=== PATIENT | female | born 1940 | race Caucasian/White ===

== ENCOUNTER 2016-12-01 11:11 | Emergency (ER) | payer MEDICARE ==
[~2016-12-01] VITALS: Ht 157.5 cm; Wt 58.5 kg
[~2016-12-01 11:11] MED LIST: RALO60TA12 PO
[2016-12-01 11:14] VITALS: Ht 157.5 cm; Wt 58.5 kg
[2016-12-01] MEDS ORDERED: SOD CHLORIDE 0.9% 1,000 ML IV STA (11:36)
[2016-12-01 11:53] LABS: BASOPHILS % 0.6 % (0.0-2.0); EOSINOPHILS # 0.2 10^3/ul (0.0-0.5); EOSINOPHILS % 2.7 % (0.0-7.0); HEMATOCRIT 44.8 % (37.0-47.0); HEMOGLOBIN 14.9 g/dl (12.0-16.0); LYMPHOCYTES # 1.4 10^3/ul (0.8-2.9); LYMPHOCYTES % 18.5 % (15.0-51.0); MEAN CORPUSCULAR HEMOGLOBIN 31.7 pg (29.0-33.0); MEAN CORPUSCULAR HGB CONC 33.3 g/dl (32.0-37.0); MEAN CORPUSCULAR VOLUME 95.2 fl (82.0-101.0); MEAN PLATELET VOLUME 7.6 fl (7.4-10.4); MONOCYTE # 0.4 10^3/ul (0.3-0.9); NEUTROPHIL # 5.3 10^3/ul (1.6-7.5); NEUTROPHILS % 72.2 % (39.0-77.0); PLATELET COUNT 224 10^3/UL (140-440); RED BLOOD COUNT 4.71 10^6/ul (4.20-5.40); RED CELL DISTRIBUTION WIDTH 13.6 % (11.5-14.5); UNCORRECTED WBC 7.4 10^3/ul (4.8-10.8); WHITE BLOOD COUNT 7.4 10^3/ul (4.8-10.8)
[2016-12-01 11:56] LABS: CONDITION 1
[2016-12-01 12:06] LABS: CHLORIDE 100 mmol/L (97-110); POTASSIUM 3.9 mmol/L (3.5-5.1); SODIUM 139 mmol/L (135-144)
[2016-12-01 12:07] LABS: INR 0.97; PROTIME 12.9 Sec (12.2-14.2)
[2016-12-01 12:08] LABS: PARTIAL THROMBOPLASTIN TIME 33.7 Sec (25.0-35.0)
[2016-12-01 12:08] LABS: ADD UMIC YES; URINE BILIRUBIN (Dip) NEGATIVE (NEGATIVE); URINE BLOOD (Dip) TRACE (NEGATIVE); URINE COLOR LT. YELLOW (YELLOW); URINE GLUCOSE (Dip) NEGATIVE (NEGATIVE); URINE KETONES (Dip) 15 (NEGATIVE); URINE LEUKOCYTE ESTERASE (Dip) NEGATIVE (NEGATIVE); URINE NITRITE (Dip) NEGATIVE (NEGATIVE); URINE TOTAL PROTEIN (Dip) NEGATIVE (NEGATIVE); URINE UROBILINOGEN (Dip) 0.2 E.U./dL (0.1-1.0)
[2016-12-01 12:09] LABS: ANION GAP 18 (8-16); BLOOD UREA NITROGEN 17 mg/dl (7-20); CALCIUM 9.3 mg/dl (8.4-10.2); CARBON DIOXIDE 25 mmol/L (21-31); GLUCOSE 98 mg/dl (70-220)
--- NOTE | 2016-12-01 12:15 | RADRPT ---
PROCEDURE: CT Brain without contrast. CLINICAL INDICATION: Syncope TECHNIQUE: Routine CT scan of the brain was performed on a high resolution multi detector scanner without intravenous contrast. One or more of the following dose reduction techniques were used: Auto mated exposure control; Adjustment of the mA and/or kV according to patient size; Use of iterative r econstruction technique. CTDI = 44 mGy. DLP = 630 mGy-cm. COMPARISON: No prior relevant examinations are available for comparison. FINDINGS: Hemorrhage: No evidence of intracranial hemorrhage. Acute ischemic changes: No evidence of acute ischemic changes. Mass effect/Midline shift: None. Parenchymal volume: Within normal limits for age. Ventricular system: Concordant with parenchymal volume. Chronic changes: Mild chronic-appearing microvascular ischemic changes of the supratentorial white m atter. Atherosclerotic calcifications of the cavernous portions of both internal carotid arteries ar e present. Extracranial soft tissues: 1.2 cm calcified sebaceous cyst of the suboccipital region at the midline . Calvarium: No fractures. Paranasal sinuses: Visualized paranasal sinuses are clear. Mastoid air cells: Visualized mastoid air cells are clear. IMPRESSION: No acute intracranial abnormalities. Mild chronic-appearing microvascular ischemic changes of the supratentorial white matter. RPTAT: AADD .Manjit Packer MD, MD Date Time Electronically viewed and signed by .Manjit Packer MD, MD on 12/01/2016 12:14 .B/
[2016-12-01 12:24] LABS: TROPONIN-I < 0.012 ng/ml (0.00-0.12)
[2016-12-01 12:25] LABS: T3 UPTAKE 37.1 % (23.5-40.5)
[2016-12-01] MEDS ORDERED: ATOR20TA38 PO (12:55)
[2016-12-01] MEDS ORDERED: LEVE-5 PO (17:27)
[2016-12-01 18:00] VITALS: BP 111/62; PULSE 71; RESP 18
--- NOTE | 2016-12-02 15:04 | ERD ---
DATE OF SERVICE: 12/01/2016 HISTORY OF PRESENT ILLNESS: This is a 76-year-old female was brought in today for a short period of memory loss that occurred yesterday. The patient was brought in by a friend, both of them are nuns. Her friend witnessed the episode. The patient was sitting when she had an episode that lasted approximately 2 minutes where she seemed to be not there, although she was still seated. She did not fall. When she came back to normal, she does not remember the event at all. Around that time, she had other memory deficits as well. She has been normal since and all day today she has been her normal self with no further episodes. She is otherwise healthy and has very few medical problems. A similar episode had occurred several months ago as well and she was diagnosed with a transient global amnesia after a full workup. She denies any symptoms right now, has no pain, weakness or lightheadedness. REVIEW OF SYSTEMS: A 12-point review of systems negative except as in the HPI. PAST MEDICAL HISTORY: Unknown arrhythmia. PAST SURGICAL HISTORY: Right femoral surgery 19 years ago. SOCIAL HISTORY: Denies tobacco, alcohol or other drugs, is self-sufficient. FAMILY HISTORY: Noncontributory. PHYSICAL EXAMINATION VITAL SIGNS: Temperature 98.7, pulse 72, blood pressure 167/70, respirations 19 , oxygen saturation 99% on room air. GENERAL: No acute distress. HEENT: Normocephalic, atraumatic. Mucous membranes moist. NECK: Supple, no JVD. CARDIAC: Regular rate and rhythm. No murmurs. LUNGS: Clear to auscultation bilaterally. ABDOMEN: Soft, nontender, nondistended, no masses. EXTREMITIES: No cyanosis, clubbing or edema. VASCULAR: Distal pulses intact in all 4 extremities. MUSCULOSKELETAL: Strength 5/5 in all extremities. SKIN: No rashes or lesions. NEUROLOGIC: Alert and oriented x3. Cranial nerves II through XII intact. Cerebellar dectma-dr-stin intact. Normal gait. DIAGNOSTIC DATA LABORATORY ANALYSIS: CBC is within normal limits with no anemia or elevated white blood cell count. BMP is completely within normal limits as well. Lactic acid is normal at 1.1. Troponin is negative. Thyroid studies are within normal limits. Coagulation studies are within normal limits with an INR of 0.97. Urinalysis is negative for any infection. DIAGNOSTIC WORKUP: Head CT interpretation. I see no acute process, no hemorrhage, no mass, no midline shift, no skull fractures. EKG interpretation: Normal sinus rhythm, rate of 81, normal axis, no ST or T- wave changes concerning for acute ischemia, normal intervals. Normal EKG. monitoring manager interpretation: Normal sinus rhythm without arrhythmia. EMERGENCY ROOM/MEDICAL DECISION MAKING: Transient global amnesia versus absence seizure. She was hydrated with normal saline. She remained asymptomatic throughout her monitoring in the ER for several hours. She had no further episodes. The last episode was several months ago and she was worked up at that time and nothing was found. On this workup again, she has a completely normal studies in absolutely every studies obtained. She feels well. She has seen a neurologist before. After the last episode, she was discharged with Keppra that she was on for 2 months. She then took off this medication believing it was not likely seizure. I am going to discharge her with Keppra and instructions to follow up with a neurologist. I have very low suspicion for acute cerebrovascular accident. She asked if she should travel to [place] tomorrow to see her sisters. I have told her that she should not travel on a plane unless she is willing to risk a similar episode and repercussions of such. Both the patient and her fellow sister were very pleasant individuals and thanked us for our care. I told him to return to the hospital if this occurs again. DISCHARGE DIAGNOSES: 1. Transient global amnesia. 2. Absence seizure. DISPOSITION: Home in stable condition. Dictated By: SAHRA NEVES Conf#: [id number] DID#: [id number] MTDCynthia
== END 2016-12-01 18:09 | disposition home or self-care (01) ==
LOC: E/R 11:11
DX: G45.4 Transient global amnesia (principal); R40.2142 Coma scale, eyes open, spontaneous, at arrival to emergency department; R40.2252 Coma scale, best verbal response, oriented, at arrival to emergency department; R40.2362 Coma scale, best motor response, obeys commands, at arrival to emergency department; G40.A09 Absence epileptic syndrome, not intractable, without status epilepticus
CPT/HCPCS: 36415; 70450; 80048; 81001; 83605; 84436; 84479; 84484; 85025; 85610; 85730; 93005; 99285; J7030; 81003

== ENCOUNTER → 2017-03-04 | Outpatient (CLI) | payer MEDICARE ==
[~2017-03-04] MED LIST changes: +ATOR20TA38 PO; +LEVE-5 PO
--- NOTE | 2017-03-05 11:26 | RADRPT ---
PROCEDURE: US thyroid. CLINICAL INDICATION: THYROID NODULE TECHNIQUE: Multiple sonographic images of the thyroid were obtained utilizing a linear array trans ducer with grayscale and color-flow and a Doppler imaging. The images were reviewed on a high[employer] PACS workstation. COMPARISON: Thyroid ultrasound from 11/14/2015 FINDINGS: The thyroid gland is homogeneous in echogenicity and normal in size. The right lobe measures 3.6 x 1.2 x 1.1 cm. The left lobe measures 4.1 x 1.3 x 1.4 cm. The isthmus measures 2 mm. Right thyroid nodules: None. Left thyroid nodules: Again noted is a well-circumscribed heterogeneous nodule in the mid pole of the left lobe with vascu lar flow measuring 2.7 x 1.3 x 1.8 cm, unchanged. IMPRESSION: 2.7 cm lesion in the left thyroid lobe is unchanged compared to the prior ultrasound study from 02/2016. Continued sonographic follow-up and / or biopsy is recommended. RPTAT: EE Physician Melina Date Time Electronically viewed and signed by Physician Melina on 03/05/2017 11:26 /
== END | disposition home or self-care (01) ==
LOC: U/S 07:17
PROVIDERS: ATTEND Internal Medicine
DX: E04.1 Nontoxic single thyroid nodule (principal)
CPT/HCPCS: 76536

== ENCOUNTER → 2018-09-05 | Outpatient (CLI) | END | disposition home or self-care (01) ==